=== PATIENT | female | born 1975 | race African-American/Black ===

== ENCOUNTER 2018-09-08 07:20 | Emergency (ER) | payer MEDICAID, OTHER ==
[~2018-09-08] VITALS: Ht 170.2 cm; Wt 95.0 kg
[2018-09-08 08:26] LABS: CLARITY URINE CLEAR (CLEAR); COLOR URINE DARK YELLOW (YELLOW); KETONES URINE TRACE (NEGATIVE); LEUKOCYTE ESTERASE URINE NEGATIVE (NEGATIVE); NITRITE URINE NEGATIVE (NEGATIVE); OCCULT BLOOD URINE TRACE (NEGATIVE); PH URINE 5.5 (4.5-8.0); PROTEIN URINE NEGATIVE (NEGATIVE); SPECIFIC GRAVITY URINE 1.036 (1.005-1.030)
[2018-09-08 09:28] VITALS: BP 150/82
== END 2018-09-08 09:33 | disposition home or self-care (01) ==
LOC: ER 07:35
DX: R30.0 Dysuria (principal); Z98.890 Other specified postprocedural states; Z98.86 Personal history of breast implant removal; Z98.84 Bariatric surgery status
CPT/HCPCS: 81025; 99283

== ENCOUNTER 2019-05-26 09:32 | Emergency (ER) | payer OTHER ==
[~2019-05-26] VITALS: Ht 172.7 cm; Wt 95.0 kg
[2019-05-26] MEDS ORDERED: KETOROLAC 60MG/2ML VIAL IM ONE (10:00)
[2019-05-26] MEDS ORDERED: KETOROLAC 60MG/2ML VIAL IM NR (10:30)
[2019-05-26 10:32] VITALS: BP 151/95
== END 2019-05-26 10:33 | disposition home or self-care (01) ==
LOC: ER 10:06
DX: M54.5 Low back pain (principal); Z98.890 Other specified postprocedural states; X50.3XXA Overexertion from repetitive movements, initial encounter; Y93.B9 Activity, other involving muscle strengthening exercises; Y92.89 Other specified places as the place of occurrence of the external cause
CPT/HCPCS: 96372; 99283; J1885

== ENCOUNTER 2019-12-04 23:19 | Emergency (ER) | payer MEDICAID ==
[~2019-12-04] VITALS: Ht 170.2 cm; Wt 97.1 kg
[2019-12-05 00:04] LABS: CLARITY URINE CLEAR (CLEAR); COLOR URINE YELLOW (YELLOW); KETONES URINE TRACE (NEGATIVE); LEUKOCYTE ESTERASE URINE NEGATIVE (NEGATIVE); NITRITE URINE NEGATIVE (NEGATIVE); OCCULT BLOOD URINE NEGATIVE (NEGATIVE); PH URINE 5.5 (4.5-8.0); PROTEIN URINE NEGATIVE (NEGATIVE); SPECIFIC GRAVITY URINE 1.033 (1.005-1.030)
[2019-12-05 01:09] VITALS: BP 128/95
== END 2019-12-05 01:12 | disposition home or self-care (01) ==
LOC: ER 23:31
DX: R30.0 Dysuria (principal); Z87.440 Personal history of urinary (tract) infections; Z90.49 Acquired absence of other specified parts of digestive tract; Z98.890 Other specified postprocedural states
CPT/HCPCS: 81003; 81025; 99283

== ENCOUNTER 2020-10-10 07:13 | Emergency (ER) | payer MEDICAID ==
[~2020-10-10] VITALS: Ht 170.2 cm; Wt 88.0 kg
[2020-10-10 07:18] VITALS: BP 128/79
[2020-10-10 07:52] LABS: CLARITY URINE TURBID (CLEAR); COLOR URINE ORANGE (YELLOW); KETONES URINE TRACE (NEGATIVE); LEUKOCYTE ESTERASE URINE 3+ (NEGATIVE); NITRITE URINE NEGATIVE (NEGATIVE); OCCULT BLOOD URINE 3+ (NEGATIVE); PROTEIN URINE 2+ (NEGATIVE); SPECIFIC GRAVITY URINE 1.028 (1.005-1.030)
[2020-10-10] MEDS ORDERED: SULF1TAB48 MT (08:03)
[2020-10-10 08:42] LABS: HCG SCREEN NEGATIVE
== END 2020-10-10 08:25 | disposition home or self-care (01) ==
LOC: ER 07:38
DX: N30.80 Other cystitis without hematuria (principal); Z59.0 Homelessness; Z87.440 Personal history of urinary (tract) infections; Z98.890 Other specified postprocedural states
CPT/HCPCS: 81003; 81025; 84703; 87077; 87186; 99283

== ENCOUNTER 2020-12-26 02:21 | Emergency (ER) | payer MEDICAID ==
[~2020-12-26] VITALS: Ht 170.2 cm; Wt 87.0 kg
[~2020-12-26 02:21] MED LIST: SULF1TAB48 MT
[2020-12-26 02:57] VITALS: BP 148/90
[2020-12-26 03:30] LABS: CLARITY URINE CLOUDY (CLEAR); COLOR URINE YELLOW (YELLOW); KETONES URINE TRACE (NEGATIVE); LEUKOCYTE ESTERASE URINE 3+ (NEGATIVE); NITRITE URINE NEGATIVE (NEGATIVE); OCCULT BLOOD URINE 3+ (NEGATIVE); PROTEIN URINE TRACE (NEGATIVE); SPECIFIC GRAVITY URINE 1.027 (1.005-1.030); UROBILINOGEN URINE 0.2 E.U./dL (0.2-1.0)
[2020-12-26] MEDS ORDERED: NITR100C PO (04:05)
== END 2020-12-26 04:30 | disposition home or self-care (01) ==
LOC: ER 02:21
DX: N39.0 Urinary tract infection, site not specified (principal); Z98.890 Other specified postprocedural states; Z90.49 Acquired absence of other specified parts of digestive tract
CPT/HCPCS: 81003; 99283

== ENCOUNTER 2023-03-21 21:01 | Emergency (ER) | payer MEDICAID, OTHER ==
[~2023-03-21] VITALS: Ht 167.6 cm; Wt 93.1 kg
[~2023-03-21 21:01] MED LIST changes: +NITR100C PO
[2023-03-21 21:10] VITALS: BP 148/94; RESP 14; TEMP 99.4; O2SAT 96
[2023-03-21 21:15] VITALS: PULSE 94
[2023-03-21 21:56] LABS: CLARITY URINE CLEAR (CLEAR); COLOR URINE YELLOW (YELLOW); GLUCOSE URINE NEGATIVE (NEGATIVE); KETONES URINE NEGATIVE (NEGATIVE); LEUKOCYTE ESTERASE URINE NEGATIVE (NEGATIVE); NITRITE URINE NEGATIVE (NEGATIVE); OCCULT BLOOD URINE NEGATIVE (NEGATIVE); PROTEIN URINE NEGATIVE (NEGATIVE)
[2023-03-21 22:18] LABS: UCG QC LOT# 620457; UCG SCREEN NEGATIVE
[2023-03-22 00:16] LABS: BASOPHILS % 0.8 % (0.0-2.0); HEMATOCRIT. 36.5 % (36.0-48.0); HEMOGLOBIN. 11.7 g/dL (12.0-16.0); LYMPHOCYTES % 53.1 % (20.0-50.0); MEAN CORPUSCULAR HEMOGLOBIN 26.5 pg (28.0-32.0); MEAN CORPUSCULAR HGB CONC 32.2 g/dL (31.0-37.0); MEAN CORPUSCULAR VOLUME 82.1 fL (81.0-99.0); MEAN PLATELET VOLUME 8.4 fl (7.4-10.4); MONOCYTES % 6.6 % (2.0-8.0); NEUTROPHILS % 38.5 % (40.0-76.0); PLATELET 258 x1000/uL (130-400); RED BLOOD CELL COUNT 4.44 mill/uL (4.2-5.4); RED CELL DISTRIBUTION WIDTH 18.1 % (11.6-14.6); WHITE BLOOD COUNT 4.8 x1000/uL (4.5-11.0)
[2023-03-22 00:17] LABS: CHLORIDE 104 mEq/L (98-107); INDEX HEMOLYSI 1 (1-3); INDEX ICTERIC 1 (1-4); INDEX LIPEMIC 1 (1-3); POTASSIUM 3.5 mEq/L (3.5-5.1); SODIUM 136 mEq/L (136-145)
[2023-03-22 00:26] LABS: ALANINE AMINOTRANSFERASE 11 IU/L (13-61); ALBUMIN 3.9 g/dL (3.4-5.0); ASPARTATE AMINOTRANSFERASE 18 IU/L (15-37); BILIRUBIN TOTAL 0.3 mg/dL (0.1-1.0); CALCIUM 9.1 mg/dL (8.5-10.1); CARBON DIOXIDE 25 mEq/L (21-32); CREATININE 0.8 mg/dL (0.6-1.3); GLUCOSE 104 mg/dL (70-105); PROTEIN TOTAL 8.1 g/dL (6.0-8.3); UREA NITROGEN BLOOD 12 mg/dL (7-21)
== END 2023-03-22 02:12 | disposition home or self-care (01) ==
LOC: ER 21:01
DX: N92.0 Excessive and frequent menstruation with regular cycle (principal); Z90.49 Acquired absence of other specified parts of digestive tract; Z98.890 Other specified postprocedural states
CPT/HCPCS: 80053; 81003; 81025; 85025; 86850; 86900; 86901; 36415; 99283; Z7610

== ENCOUNTER 2023-08-16 04:31 | Emergency (ER) | payer MEDICAID, OTHER ==
[~2023-08-16] VITALS: Ht 167.6 cm; Wt 68.0 kg
[2023-08-16 05:08] VITALS: O2SAT 98
[2023-08-16 05:20] VITALS: TEMP 98
[2023-08-16] MEDS: KETOROLAC 30MG/ML VIAL IV ONE (06:03)
[2023-08-16] MEDS: ONDANSETRON HCL 4MG/2ML INJ IV ONE (06:04)
[2023-08-16 06:10] LABS: BASOPHILS % 0.9 % (0.0-2.0); EOSINOPHILS % 0.7 % (0.0-5.0); HEMATOCRIT. 36.8 % (36.0-48.0); LYMPHOCYTES % 26.9 % (20.0-50.0); MEAN CORPUSCULAR HEMOGLOBIN 27.9 pg (28.0-32.0); MEAN CORPUSCULAR HGB CONC 32.5 g/dL (31.0-37.0); MEAN CORPUSCULAR VOLUME 85.8 fL (81.0-99.0); MONOCYTES % 4.8 % (2.0-8.0); NEUTROPHILS % 66.7 % (40.0-76.0); PLATELET 250 x1000/uL (130-400); RED BLOOD CELL COUNT 4.29 mill/uL (4.2-5.4); RED CELL DISTRIBUTION WIDTH 16.2 % (11.6-14.6); WHITE BLOOD COUNT 5.3 x1000/uL (4.5-11.0)
[2023-08-16 06:22] LABS: ALANINE AMINOTRANSFERASE 10 IU/L (10-49); ALBUMIN 4.7 g/dL (3.2-4.8); ASPARTATE AMINOTRANSFERASE 27 IU/L (<34); BILIRUBIN TOTAL 0.4 mg/dL (0.1-1.0); CALCIUM 9.2 mg/dL (8.7-10.4); CARBON DIOXIDE 26 mEq/L (21-32); CHLORIDE 103 mEq/L (98-107); CREATININE 0.8 mg/dL (0.6-1.0); GLUCOSE 103 mg/dL (70-105); POTASSIUM 4.3 mEq/L (3.5-5.1); PROTEIN TOTAL 7.7 g/dL (6.0-8.3); SODIUM 134 mEq/L (136-145); UREA NITROGEN BLOOD 8 mg/dL (9-23)
[2023-08-16 06:33] LABS: HCG SCREEN NEGATIVE
[2023-08-16] MEDS: MORPHINE SULFATE 4 MG/ML CPJ (NOT FOR IM USE) IV ONE (07:21)
[2023-08-16] MEDS ORDERED: IBUP-2030 PO (08:30)
[2023-08-16] MEDS ORDERED: ONDA4TAB50 PO (08:30)
[2023-08-16 08:48] VITALS: BP 112/52; PULSE 61; RESP 17
== END 2023-08-16 08:54 | disposition home or self-care (01) ==
LOC: ER 04:33
DX: D25.9 Leiomyoma of uterus, unspecified (principal)
CPT/HCPCS: 80053; 84703; 85025; 86850; 86900; 86901; 36415; 76830; 76856; 96374; 96375; 99285; J1885; J2405; J2270; Z7610 ×3